=== PATIENT | male | born 1945 | race Caucasian/White ===

== ENCOUNTER 2016-07-31 02:10 | Inpatient (IN) ==
[2016-07-31] MEDS ORDERED: 0.9 % Sodium Chloride 1,000 ML IVC ONE (02:42)
--- NOTE | 2016-07-31 02:48 | Emergency Department Note ---
Disposition Clinical Impression: Atrial fibrillation with RVR Hematoma of left chest wall Qualifiers: Encounter type: initial encounter Qualified Code(s): S20.212A - Contusion of left front wall of thorax, initial encounter Traumatic hematoma of abdominal wall Qualifiers: Encounter type: initial encounter Qualified Code(s): S30.1XXA - Contusion of abdominal wall, initial encounter Disposition: Admitted As Inpatient Condition: Fair Referrals: NO,PCP [Primary Care Provider] - Forms: ED Satisfaction Letter Time of Disposition: 04:04 SOB HPI - General Chief Complaint: ED Shortness of Breath/Dyspnea Stated Complaint: VERONIQUE Time Seen by Provider: 07/31/16 02:12 Source: patient, EMS Limitations: no limitations Nursing Notes Reviewed: Yes Vital Signs Reviewed: Yes - History of Present Illness 71-year-old male presents to the emergency department for evaluation of difficulty in breathing. Patient states he had a fall approximately 3 weeks ago injuring his left ribs and left flank. He was seen in the emergency department earlier today for evaluation showed a large hematoma of the left chest wall and left flank. Patient states that he went home and shortly later became progressively short of breath. Patient states he was noted that he was having some palpitations and felt like he could not catch his breath. Patient urged his granddaughter to call EMS to transport him back to the emergency department. On arrival, patient is noted to be tachycardic at 130 bpm. His lungs are clear to auscultation bilaterally. His abdomen is soft and nontender. Patient has noted have extensive bruising to the left chest wall and left flank. No other findings noted on exam. Pt Subjective Complaint: shortness of breath Onset (ago): day(s) (3) Context: trauma/injury Severity: moderate Consistency/Duration: constant Improves with: nothing Worsens with: nothing Associated symptoms: Reports: chest pain, cough. Denies: sputum production, palpitations, nausea/vomiting Treatment prior to arrival: none Cough present: No - Related Data Home Medications Medication Instructions Recorded Confirmed Lexapro 07/15/16 Metoprolol 07/15/16 Simvastatin 07/15/16 Xarelto 07/15/16 Previous Rx's Medication Instructions Recorded Promethazine/Dextromethorphan 5 ml PO Q4H PRN #120 ml 07/15/16 [Promethazine-Dm Syrup] Benzonatate [Tessalon] 100 mg PO TID #30 capsule 07/23/16 Brompheniramine/Pseudoephed/Dm 5 ml PO QID #240 ml 07/23/16 [Bromfed Dm Cough Syrup] Levofloxacin [Levaquin] 750 mg PO DAILY #10 tablet 07/23/16 PredniSONE [Deltasone] 20 mg PO DAILY #18 tablet 07/23/16 OxyCODONE/APAP 5/325 [Percocet 1 each PO Q6HR PRN #24 tablet 07/30/16 5/325 MG] Allergies Allergy/AdvReac Type Severity Reaction Status Date / Time Penicillins Allergy Swelling Verified 07/15/16 10:12 of Lip/Tongue/Throat All systems ED: reviewed and negative except as stated. Constitutional: Denies: fever, chills Cardiovascular: Reports: chest pain, palpitations, dyspnea on exertion Respiratory: Reports: dyspnea Gastrointestinal: Denies: abdominal pain, nausea, vomiting Genitourinary: Denies: dysuria Musculoskeletal: Denies: back pain Neurological: Denies: headache, weakness Past Medical History - Past Medical History Medical history: Reports: atrial fibrillation, hypertension Surgical history: Reports: non-contributory Psychiatric history: Reports: no psych history - Social History Smoking Status: Never smoker Smokeless Tobacco Status: No Alcohol use: Reports: none Drug use: Reports: none Physical Exam - General Limitations: no limitations General appearance: alert, in no apparent distress - Head Head exam: atraumatic, normocephalic, normal inspection - Chest Chest inspection: Present: normal inspection, symmetric chest wall rise - Respiratory Respiratory exam: Present: normal lung sounds bilaterally - Cardiovascular Cardiovascular exam: Present: tachycardia, irregular rhythm, normal heart sounds - Abdominal Exam Abdominal exam: Present: soft, Non-Tender, other (Ecchymosis noted to the left flank). Absent: tenderness, distention, guarding, rebound, rigidity - Extremities Exam Extremities exam: Absent: pedal edema - Neurological Exam Neurological exam: Present: alert, oriented X3 - Skin Skin exam: Present: warm, dry, intact, other (Ecchymosis noted to the left flank and left lateral chest) Course - Reevaluation(s) Reevaluation #1: Patient remains tachycardic at 120 bpm despite Cardizem bolus. Will place the patient on a Cardizem drip and admit patient to the hospitalist service for further evaluation. Time: 04:03 Reevaluation #2: Discussed case with hospitalist. Patient accepted for further evaluation and treatment. Patient remains stable at time of disposition. Time: 04:24 Vital Signs Temperature 97.2 F L 07/31/16 02:11 Pulse Rate 113 07/31/16 02:11 Respiratory Rate 26 07/31/16 02:11 Blood Pressure 92/69 07/31/16 02:11 O2 Sat by Pulse Oximetry 99 07/31/16 02:11 Temperature 97.2 F L 07/31/16 02:11 Pulse Rate 86 07/31/16 03:30 Respiratory Rate 18 07/31/16 03:30 Blood Pressure 114/82 07/31/16 03:30 O2 Sat by Pulse Oximetry 97 07/31/16 03:30 Oxygen Delivery Oxygen Delivery Nasal Cannula Shortness of Breath/Dyspnea - Medical Records Medical records reviewed: Yes I reviewed the patient's medical records. - Lab Data Lab results reviewed: Yes I reviewed the patient's lab results. Lab Results 07/31/16 Range/Units 02:35 Troponin I 0.00 (0-0.03) ng/mL - Radiology Data Radiology results reviewed: Yes I reviewed the patient's radiology results. - EKG Data EKG attestation: Yes I reviewed and interpreted this EKG. Rate: Reports: tachycardia Rhythm: Reports: A.Fib Interpretation: Reports: no acute changes Attestation Statement - Attestation Attestation: I, Bharat Evans MD, personally performed a history and physical exam of the patient and discussed their management with the resident. I reviewed the resident's note and agree with the documented findings, medical decision making , and plan of care. 71-year-old male presents to the emergency department by ambulance with a complaint of shortness of breath. Patient was just here earlier today for evaluation. He had CT of the chest and abdomen and pelvis. He is not on home oxygen and denies history of breathing problems. He denies chest pain and returns tonight stating that he cannot breathe. Patient has a history of atrial fibrillation and is on Xarelto. On examination the patient is a well-developed well-nourished elderly male in no acute distress. He is alert and oriented 3. There is no cyanosis or diaphoresis. Breath sounds are decreased but equal bilaterally with no definite rales or wheezes noted. Heart is irregularly irregular with a moderate tachycardia. Abdomen is soft with normal bowel sounds. There is a large area of old resolving ecchymosis involving the left side of the trunk secondary to a fall several weeks ago. Chest x-ray tonight shows left basilar opacity which could represent consolidation or effusion. Labs reviewed from the patient's visit earlier today. The hospitalist, Dr. Marti, was consulted and accepted admission of the patient.
[2016-07-31] MEDS ORDERED: *HR* FentaNYL (PF) 100 MCG/2 ML VIAL IV ONE (03:19)
[2016-07-31] MEDS ORDERED: Ondansetron 4 MG/2 ML VIAL ONE (03:26)
[2016-07-31] MEDS ORDERED: Acetaminophen 325 MG TABLET PO PRN (04:39)
[2016-07-31] MEDS ORDERED: Naloxone 0.4 MG/ML INJ IVP PRN (04:39)
[2016-07-31] MEDS ORDERED: Ipratropium/Albuterol Neb 3 ML IH PRN (04:42)
[2016-07-31] MEDS ORDERED: *HR* Metoprolol 5 MG/5 ML VIAL IVP PRN (04:42)
--- NOTE | 2016-07-31 04:47 | Internal Med History&Physical ---
Date of Encounter: 07/31/16 Time of Encounter: 04:44 Assessment and Plan (1) Atrial fibrillation with RVR Current visit: Yes Status: Acute Unclear etiology Could be related to left chest wall hematoma? Consider repeating CT scan of the chest if worse Hold Xarelto Please call cardiology consult Continue Cardizem drip and metoprolol as needed Monitor CBC Start Lasix IV (2) Hyperlipidemia Current visit: Yes Status: Acute Qualifiers: Hyperlipidemia type: unspecified Qualified Code(s): E78.5 - Hyperlipidemia , unspecified (3) Hematoma of left chest wall Current visit: Yes Status: Acute Qualifiers: Encounter type: initial encounter Qualified Code(s): S20.212A - Contusion of left front wall of thorax, initial encounter (4) Traumatic hematoma of abdominal wall Current visit: Yes Status: Acute Qualifiers: Encounter type: initial encounter Qualified Code(s): S30.1XXA - Contusion of abdominal wall, initial encounter (5) Depression Current visit: Yes Status: Acute Omeprazole for GI prophylaxis and sequential compression devices for DVT prophylaxis. Patient will be admitted as inpatient, he is expected to stay more than 2 midnights. He is a full code. Time spent on this admission 40 minutes. He is high risk for respiratory failure due to intra-relation with RVR Qualifiers: Depression Type: unspecified Qualified Code(s): F32.9 - Major depressive disorder, single episode, unspecified Internal Medicine - H&P: HPI Chief complaint: Shortness of breath Admitted From: Emergency Dept Plans for Post Hospital Care: Home History of present illness: Mr. Hastings is a 71 year old male with a past medical history of atrial fibrillation on Xarelto, , depression, who had a fall 3 weeks ago and hit his left chest. He has been seen at the ER twice in the past 2 days. Yesterday he had a CT scan of the chest that showed the left anterolateral wall hematoma. Today the chest x-ray shows a left basilar opacity/possible left pleural effusion. His heart rate was in the 140s and had to be given Cardizem due to atrial fibrillation with rapid ventricular response. His heart rate right now is in the low 100s, complains of pain in worse ecchymosis on the left side of his chest with some tenderness. CT scan was done yesterday as well that did not show any abnormality. His hemoglobin has been stable. At the moment he feels is still short of breath and sounds very congested, bringing up just clear phlegm. Denies any other abnormalities or symptoms Past Med Surg Social Fam HX - Past Medical History Medical history: atrial fibrillation (With rapid ventricular response on Xarelto ), hypertension, other (Left rib/chest wall hematoma, depression, hyperlipidemia ) Psychiatric history: no psych history - Past Surgical History Surgical History: non-contributory, other (Cardiac ablation) - Social History Smoking Status: Never smoker Smokeless Tobacco Status: No Alcohol use: none Drug use: none - Additional Family History Additional family history: Mother with lung cancer and father with [place] Internal Medicine - H&P: Meds Lexapro 07/15/16 [History] Metoprolol 07/15/16 [History] Promethazine/Dextromethorphan [Promethazine-Dm Syrup] 5 ml PO Q4H PRN #120 ml [Rx] Simvastatin 07/15/16 [History] Xarelto 07/15/16 [History] Benzonatate [Tessalon] 100 mg PO TID #30 capsule 07/23/16 [Rx] Brompheniramine/Pseudoephed/Dm [Bromfed Dm Cough Syrup] 5 ml PO QID #240 ml [Rx] Levofloxacin [Levaquin] 750 mg PO DAILY #10 tablet 07/23/16 [Rx] PredniSONE [Deltasone] 20 mg PO DAILY #18 tablet 07/23/16 [Rx] OxyCODONE/APAP 5/325 [Percocet 5/325 MG] 1 each PO Q6HR PRN #24 tablet 07/30/16 [Rx] Allergies Penicillins Allergy (Verified 07/15/16 10:12) Swelling of Lip/Tongue/Throat All Systems PM: A 10-system review of systems was performed and is negative for pertinent findings except as documented above in the HPI. Review of systems: Physical breath, complains of chest pain, left chest pain, no abdominal pain, no dysuria, other systems out of the 10 reviewed were negative - Constitutional Vitals: Temp Pulse Resp BP Pulse Ox 97.2 F L 102 20 96/66 98 07/31/16 02:11 07/31/16 04:44 07/31/16 04:44 07/31/16 04:44 07/31/16 04:44 General appearance: Present: A&O X 3 - Head Head exam: Present: atraumatic, normocephalic - Eye Eye exam: Present: PERRL, conjuntiva pink, sclera anicteric Pupils: Present: PERRL - Neck Neck exam general surgery: Present: supple, trachea midline. Absent: lymphadenopathy - Respiratory Respiratory exam: Present: CTAB, rales (Left basilar crackles with upper airway congestion). Absent: accessory muscle use, rhonchi, wheezes - Cardiovascular Cardiovascular exam: Present: RRR, +S1, +S2. Absent: diastolic murmur, gallop, rubs, systolic murmur - GI/Abdominal GI/Abdominal exam: Present: distended (Large area of ecchymoses and left abdominal and chest areas), normal bowel sounds, soft, no peritoneal signs. Absent: tenderness - Extremities Exam Extremities exam: Present: warm, radial pulses palpable and symetrical. Absent : calf tenderness, cyanotic, pedal edema - Neurological Exam Neurological exam: Present: CN II-XII intact, oriented X3, no focal deficits. Absent: pronater drift, facial droop, speech deficit - Skin Skin exam: Present: dry, intact Internal Med - H&P Results - Labs Labs: WBC 13.8, hemoglobin 11.4 hematocrit 34.5 platelets 260, sodium 138 potassium 3.8 chloride 104 CO2 29 BUN 19 creatinine 0.81 glucose 120
[2016-07-31] MEDS: *HR* Morphine 2 MG/ML SYRINGE IVP PRN ×4 (05:17→22:08)
[2016-07-31] MEDS ORDERED: 0.9 % Sodium Chloride 1,000 ML ONE (08:00)
[2016-07-31] MEDS: Benzonatate 100 MG CAPSULE PO SCH ×3 (08:03→22:09)
[2016-07-31] MEDS: Furosemide 40 MG/4 ML VIAL IV SCH (08:03)
--- NOTE | 2016-07-31 08:10 | Cardiology Consult Note ---
<Yemi Arriaga - Last Filed: 07/31/16 09:05> Date of Encounter: 07/31/16 Time of Encounter: 08:08 Assessment and Plan (1) Atrial fibrillation with RVR Current Visit: Yes Status: Acute Mild afib with RVR this am on cardizem gtt. Likely exacerbated by emphysema/ bronchitis and hematoma. Increase home dose of toprol xl and stop cardizem. Increase as needed. CHADS VASc= 2 for HTN and age. Xarelto on hold d/t hematoma. Hgb stable. Continue to hold until hematoma resolved. Restart once able. (2) Emphysema lung Current Visit: Yes Status: Acute Moderate emphysema and possible bronchiectasis on CT scan 07/30/16 Took two rounds of antibiotics in the out pt setting. Hospitalist following. Consider pulmonology consult if no improvement. Qualifiers: Emphysema type: unspecified Qualified Code(s): J43.9 - Emphysema, unspecified (3) Hematoma of left chest wall Current Visit: Yes Status: Acute Qualifiers: Encounter type: initial encounter Qualified Code(s): S20.212A - Contusion of left front wall of thorax, initial encounter Discussion w patient/family: The assessment and plan as outlined above was discussed with the patient and/or family members who expressed understanding and agreement. All questions were answered. Thank you for involving us in the care of your patient. Please call with any questions. History of Present Illness Consult date: 07/31/16 Requesting physician: Felipe Castle Consult reason: afib with RVR Chief complaint: SOB, Fall History of present illness: Mr. Hastings is a 71 year old male with a history of paroxysmal atrial fibrillation on xarelto, atypical atrial flutter s/p ablation, tachycardia induced cardiomyopathy, hypertension, hyperlipidemia, and mechanical fall 07/09 who presented with SOB. He was found to have left chest hematoma on CT scan 07/30/16. His xarelto was discontinued at that time. He hit his back and abdomen when he fell. No fractures seen. His states his bruising did not appear until he was coughing very hard a couple of weeks ago. He was being treated for bronchitis for two weeks in the out pt setting. He took two rounds of antibiotics and steroids. His SOB and cough continued to increase. He denies weight gain or edema. Mild orthopnea. Denies chest pain. His stated he was passing out after having a forceful coughing spell. His symptoms improved with oxygen. CT scan showed moderate emphysema and possible inflammatory bronchiectasis. LLL nodules with the largest being 7mm. No CHF described. TTE 2013-EF 50% . EF low normal.Moderately enlarged bilateral atrium. Limited study. TTE 2011- EF 45-50%. Trace TR. Stress test 2012- negative for ischemia or infarct. Past Med Surg Social Fam HX - Past Medical History Medical history: atrial fibrillation (With rapid ventricular response on Xarelto ), hypertension, other (Left rib/chest wall hematoma, depression, hyperlipidemia ) Psychiatric history: no psych history - Past Surgical History Surgical History: non-contributory, other (Cardiac ablation) - Social History Smoking Status: Never smoker Smokeless Tobacco Status: No Alcohol use: none Drug use: none - Family History Mother Living Status: Hx Family Cancer: Yes Father Living Status: Hx Family Cardiac Disorders: Yes Medications and Allergies Escitalopram [Lexapro] 20 mg PO DAILY 07/15/16 [History] Metoprolol XL (24 HR) Succ [Toprol XL] 25 mg PO DAILY 07/15/16 [History] Rivaroxaban [Xarelto] 20 mg PO QPM 07/15/16 [History] Simvastatin [Zocor] 10 mg PO DAILY 07/15/16 [History] Brompheniramine/Pseudoephed/Dm [Bromfed Dm Cough Syrup] 5 ml PO QID #240 ml [Rx] Levofloxacin [Levaquin] 750 mg PO DAILY #10 tablet 07/23/16 [Rx] PredniSONE [Deltasone] 20 mg PO DAILY #18 tablet 07/23/16 [Rx] Dutasteride [Avodart] 0.5 mg PO DAILY 07/31/16 [History] OxyCODONE/APAP 5/325 [Percocet 5/325 MG] 1 tab PO Q6HR PRN 07/31/16 [History] Allergies Penicillins Allergy (Verified 07/15/16 10:12) Swelling of Lip/Tongue/Throat All Systems Review: A 10-system review of systems was performed and is negative for pertinent findings except as documented above in the HPI. Physical Examination Vital Signs, Last 4 Hours Pulse Resp BP Pulse Ox 07/31/16 07:59 16 114/83 07/31/16 06:59 98 18 119/93 98 07/31/16 06:07 95 18 104/67 98 07/31/16 05:23 103 18 122/92 97 07/31/16 04:44 102 20 96/66 98 General: Conversant, Other (restless, appears uncomfortable) HEENT: Atraumatic, Normocephaly, Mucus Membranes Moist Neck: No JVD, Normal carotid pulses Cardiac: Other (Irregularly irregular) Lungs: Other (Respirations shallow, lungs clear but diminished in bases. ) Neuro: Alert and responsive, No focal deficits noted Abdomen: Other (Moderate amount of ecchymosis on his left lower abdomin wrapping around to his back . Mildly distended, tender to palpation. ) Skin: No rashes noted on visualized skin Extremities: No Clubbing, No Cyanosis, No Edema, Normal Pulses Results Chest X-Ray 07/31/16 02:42 IMPRESSION: Left basilar opacity could represent consolidation and pleural effusion. D/ / Carlos Lunsford MD / Carlos Lunsford MD Interpreting Provider: Carlos Lunsford MD Cardiac Enzymes 07/31/16 Range/Units 02:35 Troponin I 0.00 (0-0.03) ng/mL CT scan 07/30/16- showed hemmorhage/eccymosis within SQ fat of the left anterolateral/lateral wall. Moderate emphysema with possible inflammatory bronchiectasis within the right middle and lower lobes. there is lung nodules with largest at 7mm in LLL. - Imaging and Cardiology Echo: report reviewed Consult Discharge Plan - Plan Referrals: NO,PCP [Primary Care Provider] - <Татьяна Armas - Last Filed: 07/31/16 16:56> Date of Encounter: 07/31/16 Assessment and Plan Discussion w patient/family: The assessment and plan as outlined above was discussed with the patient and/or family members who expressed understanding and agreement. All questions were answered. Thank you for involving us in the care of your patient. Please call with any questions. History of Present Illness History of present illness: Mr. Hastings is a 71 year old male All Systems Review: A 10-system review of systems was performed and is negative for pertinent findings except as documented above in the HPI. Physical Examination Vital Signs, Last 4 Hours Temp Pulse Resp BP Pulse Ox 07/31/16 16:26 97.8 F 95 16 124/77 97 Results 07/31/16 11:47 07/31/16 11:47 Lab Results 07/31/16 07/31/16 07/31/16 11:47 11:47 11:47 WBC 15.3 H Hgb 10.1 L Hct 31.1 L Plt Count 297 INR 2.2 Sodium 136 Potassium 4.3 Chloride 101 Carbon Dioxide 27 BUN 25 Creatinine 1.08 Glucose 147 H Calcium 8.3 L Magnesium 2.0 Troponin I 07/31/16 11:47 WBC Hgb Hct Plt Count INR Sodium Potassium Chloride Carbon Dioxide BUN Creatinine Glucose Calcium Magnesium Troponin I 0.00 - Attending Attestation I examined this patient and my medical decision-making was reviewed with the SHIELD OPERATOR/PA/Advanced Practice Nurse/Resident Physician. I agree with the documented findings, disposition and treatment plan. Mr. Hastings presents with worsening SOB after being diagnosed with bronchitis and developing a large hematoma over his abdomen. His heart rates were noted to be elevated, 90-110's and was placed on cardizem gtt. We have stopped the drip and increased his home dose of toprol. An echo is pending. Otherwise, xarelto has been stopped secondary to the presence of a hematoma that he developed after a mechanical fall. Blood count is stable.
[2016-07-31] MEDS: Metoprolol XL (24 HR) Succ 50 MG TAB.ER.24H PO SCH (09:28)
--- NOTE | 2016-07-31 11:18 | Internal Med Progress Note ---
Date of Encounter: 07/31/16 Time of Encounter: 10:50 - Assessment and plan (1) Atrial fibrillation with RVR Current Visit: Yes Status: Acute Assessment and plan: Rate controlled with Toprol XL 50mg QD CHADSVASC 2, appropriate for long-term a/c, though in setting of pronounced hematoma with low Hgb, would hold at this juncture until hematoma resolves. Appreciate cardiology recs. (2) Hematoma of left chest wall Current Visit: Yes Status: Acute Assessment and plan: Per patient, sustained mechanical fall while on Xarelto. Chest CT 07/30/16 10:03 IMPRESSION: Hemorrhage/ecchymosis within the subcutaneous fat of the left anterolateral and lateral abdominal wall. Hematoma of the left anterolateral abdominal wall musculature. No acute fracture nor acute intrathoracic/ abdominal/ pelvic findings. Moderate emphysema. With postinflammatory bronchiectasis within the right middle and left lower lobe. There are couple of noncalcified left lower lobe nodules, larger measuring 7 mm. Ideally, comparison with prior studies could be performed to confirm stability. Otherwise, recommendation as below. White count elevated, with pleural effusion/hematoma acting as possible nidus for infection. Will finish levaquin course, 750mg x 1 more day. Qualifiers: Encounter type: initial encounter Qualified Code(s): S20.212A - Contusion of left front wall of thorax, initial encounter (3) Traumatic hematoma of abdominal wall Current Visit: Yes Status: Acute Assessment and plan: No peritoneal signs, no CVA tenderness. Cont to monitor, eval for signs anemia. Qualifiers: Encounter type: initial encounter Qualified Code(s): S30.1XXA - Contusion of abdominal wall, initial encounter (4) Emphysema lung Current Visit: Yes Status: Chronic Assessment and plan: Long-standing smoking history per patient Qualifiers: Emphysema type: unspecified Qualified Code(s): J43.9 - Emphysema, unspecified (5) DVT prophylaxis Current Visit: Yes Status: Acute Assessment and plan: EPCDs in light of hematoma. - Subjective Interval history: Patient seen/eval while he was in ED bed. HPI reviewed, interval events noted. He had sustained mechanical fall late Jun 2016 while on xarelto for Afib, subsequently developed left ant wall and abdominal/flank ecchymosis. Presents with breakthrough AFRVR, xarelto held due to hematoma. He endorses cough, but nonbloody. No hematemesis. No gross hematuria or bloody stool noted. - Constitutional Vitals: Temp Pulse Resp BP Pulse Ox 97.2 F L 89 20 108/76 97 07/31/16 02:11 07/31/16 09:36 07/31/16 09:36 07/31/16 09:36 07/31/16 09:36 General appearance: Present: A&O X 3, morbidly obese, answers questions appropriately - Head Head exam: Present: atraumatic, normocephalic - Eye Eye exam: Present: EOMI, sclera anicteric - ENT ENT exam: Present: mucous membranes moist - Neck Neck exam general surgery: Present: supple, trachea midline - Respiratory Respiratory exam: Present: rhonchi (scant ronchi, dim all lee 2* habitus). Absent: wheezes - Cardiovascular Cardiovascular exam: Present: irregular rhythm (c/w Afib), +S1, +S2. Absent: JVD - GI/Abdominal GI/Abdominal exam: Present: soft, no peritoneal signs Additional comments: Noted left chest wall, left abdomen and left flank with region ecchymosis. No CVA tenderness - Extremities Exam Extremities exam: Present: warm, radial pulses palpable and symetrical. Absent : pedal edema - Neurological Exam Neurological exam: Present: strengths equal and symetr throughout, speech deficit. Absent: facial droop Internal Medicine: Result - Labs CBC & Chem 7: 07/31/16 11:47 07/31/16 11:47 Consult Discharge Plan - Plan Referrals: NO,PCP [Primary Care Provider] -
[2016-07-31 12:06] LABS: Basophils % 0.2 %; Eosinophils % 0.3 %; Hematocrit 31.1 % (37.5-50.1); Hemoglobin 10.1 g/dL (12.9-16.9); Immature Granulocytes % 1.1 % (0-4); Lymphocytes # 2.8 K/mcL (0.6-4.6); Lymphocytes % 18.1 %; Mean Corpuscular HGB Conc 32.5 g/dL (31.6-35.5); Mean Corpuscular Hemoglobin 30.3 pg (28.0-33.3); Mean Corpuscular Volume 93.4 fL (83.0-100.0); Mean Platelet Volume 9.4 fL (9.4-12.4); Monocytes # 1.6 K/mcL (0.0-1.3); Monocytes % 10.2 %; Neutrophils # 10.8 K/mcL (1.6-8.9); Nucleated Red Blood Cells 0.3 /100 WBC (0); Platelet Count 297 K/mcL (140-400); Red Blood Count 3.33 M/mcL (4.19-5.50); Red Cell Distribution Width 12.5 % (11.5-14.5); Segmented Neutrophils % 70.1 %
[2016-07-31 12:10] LABS: INR 2.2; Prothrombin Time 24.8 Seconds (9.4-12.1)
--- NOTE | 2016-07-31 12:10 | Electrocardiograph Report ---
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
[2016-07-31 12:18] LABS: BUN/Creatinine Ratio 23 (6-26); Blood Urea Nitrogen 25 mg/dL (8-26); Calcium 8.3 mg/dL (8.6-10.8); Carbon Dioxide 27 mEq/L (19-29); Chloride 101 mEq/L (98-109); Glucose 147 mg/dL (70-99); Osmolality,Calculated 289 (280-300); Potassium 4.3 mEq/L (3.5-4.5); Sodium 136 mEq/L (136-145); eGFR For African Americans > 60 (> 60); eGFR For Non-African Americans > 60 (> 60)
[2016-07-31] MEDS ORDERED: Levofloxacin 750 MG/150 ML 750 MG/150 ML BAG IVPB ONE (16:03)
--- NOTE | 2016-07-31 16:11 | Event Note ---
<Chika Hayes - Last Filed: 07/31/16 16:11> Date of Encounter: 07/31/16 Time of Encounter: 11:16 Patient seen/eval while he was in ED bed. HPI reviewed for earlier this morning reviewed, interval events noted. He had sustained mechanical fall late Jun 2016 while on xarelto for Afib, subsequently developed left ant wall and abdominal/ flank ecchymosis. Presents with breakthrough AFRVR, xarelto held due to hematoma. He endorses cough, but nonbloody. No hematemesis. No gross hematuria or bloody stool noted. Exam discloses Gen: Morbidly obese habitus, pleasant HEENT: ATNC EOMI nonicteric, mmm Neck supple, trachea midline CV irregular rhythm (c/w Afib), +S1, +S2. Absent: JVD Resp rhonchi (scant ronchi, dim all lee 2* habitus). Absent: wheezes Abdomen: BS positive all 4 quadrants, no peritonea signs, no tenderness Noted left chest wall, left abdomen and left flank with region ecchymosis. No CVA tenderness Ext warm, radial pulses palpable and symetrical. Absent: pedal edema Neuro strengths equal and symetr throughout, speech deficit. Absent: facial droop AF RVR Rate controlled with Toprol XL 50mg QD CHADSVASC 2, appropriate for long-term a/c, though in setting of pronounced hematoma with low Hgb, would hold at this juncture until hematoma resolves. Appreciate cardiology recs. Hematoma left chest well, pleural effusion Per patient, sustained mechanical fall while on Xarelto. White count elevated, with pleural effusion/hematoma acting as possible nidus for infection. Will finish levaquin course, 750mg x 1 more day. No peritoneal signs, no CVA tenderness. Cont to monitor, eval for signs anemia. EPCDs in light of hematoma. <Santino Mcfarlane - Last Filed: 07/31/16 18:10> Date of Encounter: 07/31/16 I examined this patient and my medical decision-making was reviewed with the [facility]/PA/Advanced Practice Nurse/Resident Physician. I agree with the documented findings, disposition and treatment plan as described except to the extent set forth below. Will monitor cbc and signs of bleeding.
[2016-07-31] MEDS ORDERED: Perflutren Lipid Microsphere 1.3 ML in 0.9 % Sodium Chloride 8.7 ML IVP ONE (19:56)
[2016-07-31] MEDS ORDERED: Perflutren Lipid Microsphere 2 ML VIAL ONE (19:58)
[2016-07-31 21:03] LABS: Hematocrit 29.5 % (37.5-50.1); Hemoglobin 9.9 g/dL (12.9-16.9)
[2016-08-01] MEDS: *HR* Morphine 2 MG/ML SYRINGE IVP PRN ×2 (05:51→11:05)
[2016-08-01 05:57] LABS: Hematocrit 27.6 % (37.5-50.1); Hemoglobin 9.1 g/dL (12.9-16.9); Mean Corpuscular Hemoglobin 30.7 pg (28.0-33.3); Mean Corpuscular Volume 93.2 fL (83.0-100.0); Mean Platelet Volume 9.7 fL (9.4-12.4); Platelet Count 251 K/mcL (140-400); Red Blood Count 2.96 M/mcL (4.19-5.50); Red Cell Distribution Width 12.5 % (11.5-14.5)
[2016-08-01 06:15] LABS: BUN/Creatinine Ratio 25 (6-26); Blood Urea Nitrogen 20 mg/dL (8-26); Calcium 8.5 mg/dL (8.6-10.8); Carbon Dioxide 31 mEq/L (19-29); Chloride 103 mEq/L (98-109); Chol/HDL Ratio 2.7 (0-4.9); Cholesterol 104 mg/dL (< 200); Glucose 112 mg/dL (70-99); HDL Cholesterol 38 mg/dL (40-59); LDL Cholesterol,Calculated 45 mg/dL (0-99); Osmolality,Calculated 289 (280-300); Potassium 4.5 mEq/L (3.5-4.5); Sodium 138 mEq/L (136-145); Triglycerides 106 mg/dL (< 150); eGFR For African Americans > 60 (> 60); eGFR For Non-African Americans > 60 (> 60)
[2016-08-01] MEDS: Furosemide 40 MG/4 ML VIAL IV SCH (07:31)
[2016-08-01] MEDS: Benzonatate 100 MG CAPSULE PO SCH ×3 (07:31→20:26)
[2016-08-01] MEDS: Metoprolol XL (24 HR) Succ 50 MG TAB.ER.24H PO SCH (07:31)
--- NOTE | 2016-08-01 07:41 | ECHO - Doppler Report ---
Echo with Imaging Enhancement Agent Name: Tushar Hastings Date of Study: 07/31/2016 Date: 1945 Ht: 71.0 in Medical Record#: [id number] Age: 71 Wt: 304.0 lb Gender: Male BSA: 2.52 Order #: [id number] Location: [facility] Room #: 2NE16 Reading Physician: Max Ramirez MD, [facility] Chemistry Quality Control Technician: María Elena Morrow Ordering Physician: Yemi Arriaga CNP Primary Physician: None Indications: Afib, Shortness of breath Impressions: Technically sub-optimal due to poor echocardiographic windows. Atrial fibrillation with RVR. Normal left ventricular size and systolic function, LVEF 55%. Indeterminate diastolic function due to atrial fibrillation. Normal right ventricular structure and function. Moderately dilated left atrium. Moderately dilated right atrium. Cardiac valves were not well visualized. No evidence of significant valvular dysfunction. Mild pulmonary hypertension. Estimated RVSP = 38 mmHg. Left Ventricular Wall Motion: Rest Echo Findings All wall segments showed normal motion. Findings: Study Quality * Technically sub-optimal due to poor echocardiographic windows. ECG Findings * Atrial fibrillation with RVR. Left Ventricle * Normal left ventricular size and systolic function, LVEF 55%. * Normal LV wall thickness. * Indeterminate diastolic function due to atrial fibrillation. Right Ventricle * Normal right ventricular structure and function. Left Atrium * Moderately dilated left atrium. Right Atrium * Moderately dilated right atrium. Aorta * Normally sized aortic root. Pericardium * There is no pericardial effusion present. IVC * The IVC is not well evaluated. Aortic Valve * Aortic valve not well visualized. * No aortic stenosis. * No aortic regurgitation. Mitral Valve * Mitral valve not well visualized. * Mild mitral annular calcification * No mitral stenosis. * No mitral regurgitation. Tricuspid Valve * Tricuspid valve not well visualized. * No tricuspid stenosis. * Trace tricuspid regurgitation. * Mild pulmonary hypertension. Estimated RVSP = 38 mmHg. Pulmonic Valve * Pulmonic valve not well visualized. * No pulmonic stenosis. * No pulmonic regurgitation. History Hypertension Hypercholesteremia Years 12 Packs 1 Family History of CAD 05/05/2014 a Previous Echo was performed. Contrast: Definity 1.3 ml in 8.7 ml of saline 2 ml. Measurements: BP: 124/ 77 2D Normal Values RVIDd: 3.20 cm IVSd: 1.00 cm 0.6 - 1.0 cm LVIDd: 5.00 cm 3.7 - 5.6 cm LVPWd: 1.00 cm 0.6 - 1.1 cm LVIDs: 3.00 cm 1.5 - 3.6 cm AO: 3.10 cm < 4.0 cm Tricuspid Valve TV Regurg Peak Grad: 33.00mmHg TV Regurg Peak Kash: 2.89m/sec Updated by Max Ramirez MD, [facility] on 08/01/2016 7:35:26 AM electronically signed on 08/01/2016 7:36:29 AM with status of Final Wall Motion Gardner: 1=Normal, 2=Hypokinesis, 3=Akinesis, 4=Dyskinesis, 5=Aneurysmal, 6=Hyperkinetic, X=Not Visualized (Blank)=Missing
--- NOTE | 2016-08-01 08:47 | Cardiology Progress Note ---
Date of Encounter: 08/01/16 Time of Encounter: 08:45 Assessment and Plan (1) Atrial fibrillation with RVR Current Visit: Yes Status: Acute Per Cardiology: History of paroxysmal atrial fibrillation on xarelto, atypical atrial flutter s/ p ablation, tachycardia induced cardiomyopathy. Echo shows EF preserved 55%, moderately dilated LA and RA. Tele shows avg HR past 12 hrs 98, currently 100's (afib). Likely exacerbated by emphysema/bronchitis and pain. On Toprol XL 50mg PO daily. Current systolic blood pressure in the 90s. We'll continue to monitor heart rate and blood pressure suspect morning and titrate medications as able. CHA2DS VASc= 2 for HTN and age. Xarelto on hold d/t hematoma. Patient and family aware of increased stroke risk. (2) Traumatic hematoma of abdominal wall Current Visit: Yes Status: Acute Per Cardiololgy: S/p mechanical fall (slipped on wet steps on a school bus) 07/09/16 with left chest hematoma on CT scan 07/30/16. His Xarelto has now been on hold during this hospital stay. Hgb downward trending from 11.4 to 9.1. Continue to hold until hematoma resolved and monitor Hgb closely. Recent chest/abdomen/pelvis CT showed hemorrhage/ecchymosis with subsequent stat left anterolateral and lateral , wall with hematoma of left anterolateral abdominal wall musculature. Qualifiers: Encounter type: initial encounter Qualified Code(s): S30.1XXA - Contusion of abdominal wall, initial encounter Discussion w patient/family: The assessment and plan as outlined above was discussed with the patient and/or family members who expressed understanding and agreement. All questions were answered. Thank you for involving us in the care of your patient. Please call with any questions. Subjective Principal diagnosis: Afib RVR Interval history: Patient denies any palpitations or shortness of breath. Reports some left-sided chest soreness from his fall. Patient and family report development of bruising to his left flank area since yesterday. He denies any active bleeding or blood loss. Reports utilizes CPAP at home for sleep apnea. Objective Vital Signs, Last 4 Hours Temp Pulse Resp BP Pulse Ox 08/01/16 08:32 97.8 F 107 16 107/75 92 L 08/01/16 07:37 95 08/01/16 05:42 98.8 F 92 17 124/73 97 General: Conversant, No Apparent Distress HEENT: Atraumatic, Normocephaly, Mucus Membranes Moist Cardiac: No Murmur, Other (Irregularly irregular) Lungs: Normal Breath Sounds, No Wheeze, Rales, Rhonchi Neuro: Alert and responsive, No focal deficits noted Abdomen: Soft, Non-Tender Skin: Other (ecchymotic area noted to left upper and left lower abdominal quadrants, ecchymosis noted to L flank) Musculoskeletal: Other (+ chest wall tenderness) Extremities: No Edema Results 08/01/16 05:19 08/01/16 05:19 Lab Results Laboratory Tests 02/08/16 07/30/16 07/31/16 10:29 10:12 02:35 Hgb 14.7 11.4 L Hct 44.2 34.5 L INR Troponin I 0.00 07/31/16 07/31/16 08/01/16 11:47 11:47 05:19 Hgb 9.1 L Hct 27.6 L INR 2.2 Troponin I 0.00 ITS Impressions Chest X-Ray 07/31/16 02:42 IMPRESSION: Left basilar opacity could represent consolidation and pleural effusion. D/ / Carlos Lunsford MD / Carlos Lunsford MD Interpreting Provider: Carlos Lunsford MD Active Medications Acetaminophen (Tylenol) 650 mg PO Q6HR PRN PRN Reason: Mild Pain (1-3) Stop: 01/30/17 04:40 Albuterol/Ipratropium (Duoneb) 3 ml IH [id number] PRN; Protocol PRN Reason: Shortness Of Breath/Wheezing Stop: 01/30/17 04:43 Benzonatate (Tessalon) 100 mg PO TID AYE Stop: 01/30/17 09:01 Last Admin: 08/01/16 07:31 Dose: 100 mg Furosemide (Lasix) 20 mg IV DAILY [facility] Stop: 01/30/17 09:01 Last Admin: 08/01/16 07:31 Dose: 20 mg Metoprolol Succinate (Toprol Xl) 50 mg PO DAILY [facility] Stop: 01/30/17 09:16 Last Admin: 08/01/16 07:31 Dose: 50 mg Metoprolol Tartrate (Lopressor) 5 mg IVP Q5MIN PRN PRN Reason: tachycardia Stop: 08/02/16 04:46 Morphine Sulfate (Morphine Sulfate) 2 mg IVP Q4HR PRN PRN Reason: Severe Pain (7-10) Stop: 01/30/17 04:40 Last Admin: 08/01/16 05:51 Dose: 1 mg Naloxone HCl (Narcan) 0.4 mg IVP Q2MIN PRN PRN Reason: Opioid Reversal Stop: 01/30/17 04:40 Omeprazole (Prilosec) 40 mg PO DAILY@0630 AYE PRN Reason: Protocol Stop: 01/30/17 06:31 Last Admin: 08/01/16 05:44 Dose: 40 mg - Imaging and Cardiology Chest Xray: report reviewed Echo: report reviewed - EKG Interpretation EKG results cardiology: other (24 hr tele reviewed and showed afib with avg hr past 12 hrs 98, curently 101) - VTE Documentation of Mechanical Device: Intermittent pneumatic compression device Consult Discharge Plan - Plan Referrals: NO,PCP [Primary Care Provider] -
[2016-08-01] MEDS ORDERED: 0.9 % Sodium Chloride 1,000 ML IVC ONE (11:05)
[2016-08-01] MEDS ORDERED: Metoprolol XL (24 HR) Succ 25 MG TAB.ER.24H PO ONE (14:12)
--- NOTE | 2016-08-01 14:46 | Internal Med Progress Note ---
<Chika Hayes - Last Filed: 08/01/16 14:47> Date of Encounter: 08/01/16 Time of Encounter: 14:35 - Assessment and plan (1) Atrial fibrillation with RVR Current Visit: Yes Status: Acute Assessment and plan: Rate controlled with Toprol XL 50mg QD CHADSVASC 2, appropriate for long-term a/c, though in setting of pronounced hematoma with low Hgb, continue to hold at this juncture until hematoma resolves. Appreciate cardiology recs. (2) Hematoma of left chest wall Current Visit: Yes Status: Acute Assessment and plan: Per patient, sustained mechanical fall while on Xarelto. White count elevated, with pleural effusion/hematoma acting as possible nidus for infection. 07/31/16 Finished course of levaquin started as outpatient. Qualifiers: Encounter type: initial encounter Qualified Code(s): S20.212A - Contusion of left front wall of thorax, initial encounter (3) Traumatic hematoma of abdominal wall Current Visit: Yes Status: Acute Assessment and plan: Per above, monitor H/H Qualifiers: Encounter type: initial encounter Qualified Code(s): S30.1XXA - Contusion of abdominal wall, initial encounter (4) Emphysema lung Current Visit: Yes Status: Chronic Assessment and plan: Suggested by CT Chest. He had outpatient prednisone taper, but given continued wheezing on exam and dyspnea, would restart 3 day burst of prednisone. Qualifiers: Emphysema type: unspecified Qualified Code(s): J43.9 - Emphysema, unspecified (5) DVT prophylaxis Current Visit: Yes Status: Acute Assessment and plan: EPCDs - Subjective Interval history: Patient seen/eval, at bedside. He affirms continued pleuritic discomfort and white-productive cough. He denies any blood-tinged sputum. No bloody stools or gross hematuria. Denies fever, chills, substernal chest pain, nvd. Still feels he is wheezing. Finished course of levaquin yesterday. - Constitutional Vitals: Temp Pulse Resp BP Pulse Ox 98.3 F 104 17 111/78 95 08/01/16 10:53 08/01/16 11:26 08/01/16 10:53 08/01/16 11:26 08/01/16 10:53 General appearance: Present: A&O X 3, morbidly obese, answers questions appropriately - Head Head exam: Present: atraumatic, normocephalic - Eye Eye exam: Present: EOMI, sclera anicteric - ENT ENT exam: Present: mucous membranes moist - Neck Neck exam general surgery: Present: supple, trachea midline - Respiratory Respiratory exam: Present: rhonchi (scant ronchi, mild intermittent exp wheeze) . Absent: accessory muscle use, stridor - Cardiovascular Cardiovascular exam: Present: +S1, +S2. Absent: JVD - GI/Abdominal GI/Abdominal exam: Present: soft, no peritoneal signs. Absent: tenderness Additional comments: left abdominal ecchymosis, left chest wall ecchymosis and left flank are resolving. No fluctuance. - Extremities Exam Extremities exam: Present: warm, radial pulses palpable and symetrical. Absent : pedal edema - Neurological Exam Neurological exam: Absent: facial droop, speech deficit Internal Medicine: Result - Labs CBC & Chem 7: 08/01/16 05:19 08/01/16 05:19 Labs: Short CBC 07/31/16 08/01/16 Range/Units 20:56 05:19 WBC 11.9 H (4.3-11.1) K/mcL Hgb 9.9 L 9.1 L (12.9-16.9) g/dL Hct 29.5 L 27.6 L (37.5-50.1) % Plt Count 251 (140-400) K/mcL BMP 08/01/16 05:19 Sodium 138 Potassium 4.5 Chloride 103 Carbon Dioxide 31 H BUN 20 Creatinine 0.79 Glucose 112 H Calcium 8.5 L - ABG Interpretation ABG results: PT/INR, D-dimer PT 24.8 Seconds (9.4-12.1) H 07/31/16 11:47 - VTE Documentation of Mechanical Device: Intermittent pneumatic compression device Consult Discharge Plan - Plan Referrals: NO,PCP [Primary Care Provider] - <Santino Mcfarlane - Last Filed: 08/01/16 18:13> Date of Encounter: 08/01/16 - Constitutional Vitals: Temp Pulse Resp BP Pulse Ox 98.0 F 104 17 122/65 94 L 08/01/16 16:24 08/01/16 16:24 08/01/16 16:24 08/01/16 16:24 08/01/16 16:24 Internal Medicine: Result - Labs CBC & Chem 7: 08/01/16 17:09 08/01/16 05:19 Labs: Short CBC 07/31/16 08/01/16 08/01/16 Range/Units 20:56 05:19 17:09 WBC 11.9 H (4.3-11.1) K/mcL Hgb 9.9 L 9.1 L 9.2 L (12.9-16.9) g/dL Hct 29.5 L 27.6 L 28.0 L (37.5-50.1) % Plt Count 251 (140-400) K/mcL BMP 08/01/16 05:19 Sodium 138 Potassium 4.5 Chloride 103 Carbon Dioxide 31 H BUN 20 Creatinine 0.79 Glucose 112 H Calcium 8.5 L - ABG Interpretation ABG results: PT/INR, D-dimer PT 24.8 Seconds (9.4-12.1) H 07/31/16 11:47 - Attending Attestation I examined this patient and my medical decision-making was reviewed with the [employer] [facility]/PA/Advanced Practice Nurse/Resident Physician. I agree with the documented findings, disposition and treatment plan as described except to the extent set forth below. Follow hb, possible d/c tomorrow if stable.
[2016-08-01] MEDS ORDERED: *HR* Morphine 2 MG/ML SYRINGE IVP PRN (14:54)
[2016-08-01] MEDS: predniSONE 20 MG TABLET PO SCH (15:58)
[2016-08-01 17:21] LABS: Hemoglobin 9.2 g/dL (12.9-16.9)
[2016-08-01] MEDS: *HR* OxyCODONE/APAP 5/325 TABLET PO PRN (18:08)
[2016-08-02 06:17] LABS: Basophils % 0.1 %; Eosinophils % 0.1 %; Hematocrit 28.2 % (37.5-50.1); Hemoglobin 9.1 g/dL (12.9-16.9); Immature Granulocytes % 1.2 % (0-4); Lymphocytes # 1.8 K/mcL (0.6-4.6); Lymphocytes % 13.5 %; Mean Corpuscular HGB Conc 32.3 g/dL (31.6-35.5); Mean Corpuscular Hemoglobin 30.5 pg (28.0-33.3); Mean Corpuscular Volume 94.6 fL (83.0-100.0); Mean Platelet Volume 9.9 fL (9.4-12.4); Monocytes % 7.6 %; Neutrophils # 10.5 K/mcL (1.6-8.9); Nucleated Red Blood Cells 0.1 /100 WBC (0); Platelet Count 295 K/mcL (140-400); Red Blood Count 2.98 M/mcL (4.19-5.50); Segmented Neutrophils % 77.5 %
--- NOTE | 2016-08-02 08:12 | Cardiology Progress Note ---
Date of Encounter: 08/02/16 Time of Encounter: 08:30 Assessment and Plan (1) Atrial fibrillation with RVR Current Visit: Yes Status: Acute Per Cardiology: History of paroxysmal atrial fibrillation on xarelto, atypical atrial flutter s/ p ablation, tachycardia induced cardiomyopathy. Echo shows EF preserved 55%, moderately dilated LA and RA. Tele shows avg HR past 12 hrs 93, currently 80's ( afib). Likely exacerbated by emphysema/bronchitis and pain. On Toprol XL 75mg PO daily. Current systolic blood pressure in the 100's. Discussed with Dr. Armas , will s/o, re-consult PRN. Follow-up as outpatient in one week as scheduled with Dr. Caio Brand. CHA2DS VASc= 2 for HTN and age. Xarelto on hold d/t hematoma. Patient and family aware of increased stroke risk. Resumption of long-term anticoagulation to be evaluated in outpatient setting. (2) Traumatic hematoma of abdominal wall Current Visit: Yes Status: Acute Per Cardiololgy: S/p mechanical fall (slipped on wet steps on a school bus) 07/09/16 with left chest hematoma on CT scan 07/30/16. His Xarelto has now been on hold during this hospital stay. Hgb downward trend, but appears stabilized today. Continue to hold until hematoma resolved and monitor Hgb closely. Recent chest/abdomen/ pelvis CT showed hemorrhage/ecchymosis with subsequent stat left anterolateral and lateral, wall with hematoma of left anterolateral abdominal wall musculature. Qualifiers: Encounter type: initial encounter Qualified Code(s): S30.1XXA - Contusion of abdominal wall, initial encounter Discussion w patient/family: The assessment and plan as outlined above was discussed with the patient and/or family members who expressed understanding and agreement. All questions were answered. Thank you for involving us in the care of your patient. Please call with any questions. Subjective Principal diagnosis: Afib RVR Interval history: Patient denies any palpitations or shortness of breath. Reports some left-sided chest soreness from his fall. Patient and family report worsening bruising to his left flank area since yesterday. He denies any active bleeding or blood loss. Objective Vital Signs, Last 4 Hours Temp Pulse Resp BP Pulse Ox 08/02/16 07:04 97.9 F 84 16 105/74 98 General: Conversant, No Apparent Distress HEENT: Atraumatic, Normocephaly Cardiac: No Murmur, Other (Irregular irregular) Lungs: Normal Breath Sounds, No Wheeze, Rales, Rhonchi, Other (Slightly diminished basis) Neuro: Alert and responsive, No focal deficits noted Abdomen: Soft, Non-Tender, Other (Ecchymosis noted to left abdominal area and left flank) Skin: No rashes noted on visualized skin Musculoskeletal: Other (Slight abdominal tenderness to palpation) Extremities: No Edema, Normal Pulses Results 08/02/16 05:13 08/01/16 05:19 Lab Results Laboratory Tests 08/01/16 08/01/16 08/02/16 05:19 17:09 05:13 Hgb 9.2 L 9.1 L Hct 27.6 L 28.2 L Intake & Output 07/30/16 07/31/16 08/01/16 08/02/16 23:59 23:59 23:59 23:59 Intake Total 1312.6 / 1312.6 1480 / 1480 Output Total 700 / 700 Balance 1312.6 / 1312.6 780 / 780 Weight 138.3 kg 143.29 kg Active Medications Acetaminophen (Tylenol) 650 mg PO Q6HR PRN PRN Reason: Mild Pain (1-3) Stop: 01/30/17 04:40 Albuterol/Ipratropium (Duoneb) 3 ml IH [id number] PRN; Protocol PRN Reason: Shortness Of Breath/Wheezing Stop: 01/30/17 04:43 Benzonatate (Tessalon) 100 mg PO TID [facility] Stop: 01/30/17 09:01 Last Admin: 08/01/16 20:26 Dose: 100 mg Metoprolol Succinate (Toprol Xl) 75 mg PO DAILY [facility] Stop: 02/01/17 09:01 Morphine Sulfate (Morphine Sulfate) 1 mg IVP Q4HR PRN PRN Reason: Severe Pain (7-10) Stop: 01/30/17 04:40 Last Admin: 08/01/16 15:59 Dose: 1 mg Naloxone HCl (Narcan) 0.4 mg IVP Q2MIN PRN PRN Reason: Opioid Reversal Stop: 01/30/17 04:40 Omeprazole (Prilosec) 40 mg PO DAILY@0630 [facility] PRN Reason: Protocol Stop: 01/30/17 06:31 Last Admin: 08/02/16 05:19 Dose: 40 mg Oxycodone/Acetaminophen (Percocet 5/325) 1 each PO Q6HR PRN PRN Reason: Pain Stop: 01/31/17 14:54 Last Admin: 08/01/16 18:08 Dose: 1 each Prednisone (Prednisone) 40 mg PO DAILY AYE Stop: 08/04/16 15:01 Last Admin: 08/01/16 15:58 Dose: 40 mg - EKG Interpretation EKG results cardiology: other (Telemetry reviewed with average heart rate the past hours 93, remains A. fib) - VTE Documentation of Mechanical Device: Intermittent pneumatic compression device Consult Discharge Plan - Plan Instructions: Atrial Fibrillation (DC) Referrals: NO,PCP [Primary Care Provider] -
[2016-08-02] MEDS ORDERED: Metoprolol XL (24 HR) Succ 50 MG TAB.ER.24H PO SCH (09:00)
--- NOTE | 2016-08-02 09:42 | Internal Med Progress Note ---
Date of Encounter: 08/02/16 Time of Encounter: 09:30 - Assessment and plan (1) Atrial fibrillation with RVR Current Visit: Yes Status: Acute Assessment and plan: Rate controlled with Toprol XL 50mg QD CHADSVASC 2, appropriate for long-term a/c, though in setting of pronounced hematoma with low Hgb, continue to hold at this juncture until hematoma resolves. Appreciate cardiology recs. (2) Hematoma of left chest wall Current Visit: Yes Status: Acute Assessment and plan: Per patient, sustained mechanical fall while on Xarelto. White count elevated, with pleural effusion/hematoma acting as possible nidus for infection. 07/31/16 Finished course of levaquin started as outpatient. Pain control with percocet Qualifiers: Encounter type: initial encounter Qualified Code(s): S20.212A - Contusion of left front wall of thorax, initial encounter (3) Traumatic hematoma of abdominal wall Current Visit: Yes Status: Acute Assessment and plan: Per above, monitor H/H. This has extended to region on left back. Order for retroperitoneal US to evaluate any bleed in retroperitoneal space. Qualifiers: Encounter type: initial encounter Qualified Code(s): S30.1XXA - Contusion of abdominal wall, initial encounter (4) Emphysema lung Current Visit: Yes Status: Chronic Assessment and plan: Suggested by CT Chest. He had outpatient prednisone taper, but given continued wheezing on exam and dyspnea, would start 3 day burst prednisone. On Day 2 of prednisone burst, feels improved. Qualifiers: Emphysema type: unspecified Qualified Code(s): J43.9 - Emphysema, unspecified (5) DVT prophylaxis Current Visit: Yes Status: Acute Assessment and plan: EPCDs - Subjective Interval history: Patient seen/eval, at bedside. He states cough is improved. He denies any abdominal, flank pain, or blood-tinged stool/urine. He has noticed enlargening region of left flank hematoma now to his back. - Constitutional Vitals: Temp Pulse Resp BP Pulse Ox 97.9 F 84 16 105/74 98 08/02/16 07:04 08/02/16 07:04 08/02/16 07:04 08/02/16 07:04 08/02/16 07:04 General appearance: Present: A&O X 3, morbidly obese, answers questions appropriately - Head Head exam: Present: atraumatic, normocephalic - Eye Eye exam: Present: EOMI, sclera anicteric - ENT ENT exam: Present: mucous membranes moist - Neck Neck exam general surgery: Present: normal inspection, trachea midline - Respiratory Respiratory exam: Present: rhonchi (scant ronchi). Absent: wheezes Additional comments: diminished 2* habitus - GI/Abdominal GI/Abdominal exam: Present: soft, no peritoneal signs. Absent: guarding, tenderness Additional comments: ecchymotic region from left chest wall to left abdominal region, encompassing left flank. Enlarged to left back. No warmth or fluctuance. - Extremities Exam Extremities exam: Present: warm. Absent: mottling, pedal edema - Neurological Exam Neurological exam: Absent: facial droop, speech deficit Internal Medicine: Result - Labs CBC & Chem 7: 08/02/16 05:13 08/01/16 05:19 Labs: Short CBC 08/01/16 08/02/16 Range/Units 17:09 05:13 WBC 13.5 H (4.3-11.1) K/mcL Hgb 9.2 L 9.1 L (12.9-16.9) g/dL Hct 28.0 L 28.2 L (37.5-50.1) % Plt Count 295 (140-400) K/mcL Neutrophils # 10.5 H (1.6-8.9) K/mcL - ABG Interpretation ABG results: PT/INR, D-dimer PT 24.8 Seconds (9.4-12.1) H 07/31/16 11:47 - VTE Documentation of Mechanical Device: Intermittent pneumatic compression device Consult Discharge Plan - Plan Instructions: Atrial Fibrillation (DC) Referrals: NO,PCP [Primary Care Provider] -
[2016-08-02] MEDS: predniSONE 20 MG TABLET PO SCH (09:50)
[2016-08-02] MEDS: Benzonatate 100 MG CAPSULE PO SCH (09:50)
[2016-08-02] MEDS: *HR* OxyCODONE/APAP 5/325 TABLET PO PRN (13:51)
--- NOTE | 2016-08-02 14:07 | Discharge Summary ---
Addendum entered and electronically signed by Chika Hayes DO 08/02/16 17:37: Note, discontinue his metoprolol 25mg. He will take metoprolol 50mg- (one and 1/2 tablet for 75mg daily) Original Note: <Chika Hayes - Last Filed: 08/02/16 13:53> Date of Encounter: 08/02/16 Time of Encounter: 13:54 - Discharge Diagnosis (1) Atrial fibrillation with RVR Priority: Primary Status: Acute (2) Hematoma of left chest wall Priority: Primary Status: Chronic Qualifiers: Encounter type: initial encounter Qualified Code(s): S20.212A - Contusion of left front wall of thorax, initial encounter (3) Traumatic hematoma of abdominal wall Priority: Primary Status: Chronic Qualifiers: Encounter type: initial encounter Qualified Code(s): S30.1XXA - Contusion of abdominal wall, initial encounter (4) Emphysema lung Priority: Primary Status: Chronic Qualifiers: Emphysema type: unspecified Qualified Code(s): J43.9 - Emphysema, unspecified (5) DVT prophylaxis Priority: Secondary Status: Acute - Discharge Medications Prescriptions: OxyCODONE/APAP 5/325 [Percocet 5/325 MG] 1 tab PO Q6HR PRN #30 tablet PRN Reason: Pain Aspirin 81 mg PO DAILY #20 tab.chew Benzonatate [Tessalon] 100 mg PO TID #12 capsule Metoprolol XL (24 HR) Succ [Toprol Xl] 75 mg PO DAILY #45 tab.er.24h PredniSONE 40 mg PO DAILY #6 tablet Home Medications: Escitalopram [Lexapro] 20 mg PO DAILY 07/15/16 [History] Metoprolol XL (24 HR) Succ [Toprol Xl] 25 mg PO DAILY 07/15/16 [History] Simvastatin [Zocor] 10 mg PO DAILY 07/15/16 [History] Brompheniramine/Pseudoephed/Dm [Bromfed Dm Cough Syrup] 5 ml PO QID #240 ml [Rx] PredniSONE [Deltasone] 20 mg PO DAILY #18 tablet 07/23/16 [Rx] Dutasteride [Avodart] 0.5 mg PO DAILY 07/31/16 [History] Aspirin 81 mg PO DAILY #20 tab.chew 08/02/16 [Rx] Benzonatate [Tessalon] 100 mg PO TID #12 capsule 08/02/16 [Rx] Metoprolol XL (24 HR) Succ [Toprol Xl] 75 mg PO DAILY #45 tab.er.24h 08/02/16 [ Rx] OxyCODONE/APAP 5/325 [Percocet 5/325 MG] 1 tab PO Q6HR PRN #30 tablet 08/02/16 [ Rx] PredniSONE 40 mg PO DAILY #6 tablet 08/02/16 [Rx] Allergies/Adverse Reactions: Allergies Penicillins Allergy (Verified 07/15/16 10:12) Swelling of Lip/Tongue/Throat Procedures/tests Complete & Pending: Procedures Performed prior 72 hours Category Date Time Status CT abd pelvis wo no iv no oral [CT] Urgent Cat Scan 08/02/16 10:57 Draft EV echocardiogram w enhance Routine Y 07/31/16 08:52 Completed Date of admission: 07/31/16 04:41 Primary care physician: PCP NO Consults: 07/31/16 04:43 Consult to Cardiology [CONS] Routine Comment: Consulting Provider: Cardiology [place] Reason for Consult: a fib rvr Call Completed: No 08/01/16 10:32 Consult to Respiratory Therapy [CONS] Routine Reason for Consult: patient has ADOLFO and wears CPAP at home, please arrange for CPAP during stay Call Completed: Yes 08/02/16 13:05 Consult to Pulmonology [CONS] Routine Consulting Provider: [facility] [place] Reason for Consult: Left hemothorax, need for chest tube, discussed with Dr. Encinas Call Completed: Yes Discharging clinician: Santino Mcfarlane Anticipated date of discharge: 08/02/16 - Patient Status Disposition: Home, Self-Care Condition: Fair Functional capacity at discharge: independent ambulation Overall status at discharge: patient is progressing back to baseline - Ambulatory Orders Ambulatory Orders: CT chest wo con [CT] Time Frame: 4 Weeks, Facility: [facility], Location: Radiology Misc. Order2 Time Frame: 8 Days, Facility: [facility], Location: Lab - Discharge Instructions Instructions: Benzonatate (By mouth), Metoprolol (By mouth), Oxycodone/ Acetaminophen (By mouth), Prednisone (By mouth), Atrial Fibrillation (DC), Chronic Obstructive Pulmonary Disease (DC) Follow Up With: Caio Brand MD [Partnered Physician] - (the office with call you with your appointment time if you have any problems call your doctor or go to er) NO,PCP [Primary Care Provider] - Caio Rodriguez MD [Non-Partnered Physician] - (please make f/u appointment in 1 week, hematoma/hemothorax) - Diet and Activity Activity: return to work once cleared by your PCP/specialist Diet: advance to your usual diet Hospital course: Mr. Hastings is a 71 year old male with chronic afib, rate controlled on Toprol XL, anticoagulated with xarelto. He had sustained mechanical fall late Jun 2016 while on xarelto, subsequently developed left ant wall and abdominal/flank ecchymosis. Presents with breakthrough AFRVR to [place] 07/31/15. He had finished 4 day course of Levaquin, and given last dose to finish course. Xarelto held due to hematoma. Cardiology was consulted for AFRVR, suspect exacerbated by recent bout of bronchitis and hematoma. Patient had Toprol XL increased in dose, with improvement of heart rate. Cardiology service agreed with holding xarelto until hematoma resolved. He would be monitored closely on telemetry, with oxygen saturation 97% on room air. Left anterior wall and flank ecchymosis did appear improved over time. Patient would be noted to have ecchymosis from left flank to backside. CTAbd/Pelvis disclosed: 1. New, moderate left hemothorax with associated near complete atelectasis of the left lower lobe. No displaced rib fracture. 2. New left posterior chest/abdominal wall hematoma, measuring up to 2.7 cm. 3. No significant change in left anterolateral abdominal wall hematoma. 4. Hemorrhage/ecchymosis of the left lateral abdominal wall has progressed since the prior examination. Pulmonology service Dr. Encinas consulted for suspected hemothorax with consideration of thoracentesis. Risks, benefits, alternatives were discussed with the patient, and he agreed to proceed with bedside ultrasound-guided thoracentesis. Ultrasound would reveal an organized collection of fluid that is poorly amenable to thoracentesis and drainage. Dr. Encinas counseled the patient. The patient was breathing well on room air, 97% saturation, affirming no dyspnea, pleurisy, flank pain, or difficulty taking full breaths. Dr. Saadlla recommended for the patient to monitor closely , hold xarelto, and to have repeat follow-up imaging in 4 weeks. I discussed the reasoning and alternatives with the patient and as well. They are agreeable to going home with close monitoring. Hgb/Hct in 3 days, with results to PCP Dr. Caio Rodriguez, and f/u in his clinic in 1 week. We discussed his increased risk of stroke and other embolic phenomenon when holding xarelto, but will have 81mg ASA as a therapeutic measure. Xarelto should be held until hematoma resolves. OARRS checked and appropriate to single provider Dr Rodriguez. His abdominal wall tenderness is fairly pronounced and the medication allows ADLs. At time of discharge, patient was clinically improved, hemodynamically stable, agreeable to plan of care. He is advised to seek immediate medical attention for any new or worsening symptoms including but not limited to fever, chills, worsening chest pain, bloody cough, bloody stool, bloody urine, and he voiced understanding. - Time Spent with Patient Total time spent providing and/or coordinating discharge services: Greater than 30 minutes - Constitutional Vitals: Temp Pulse Resp BP Pulse Ox 97.9 F 84 16 105/74 98 08/02/16 07:04 08/02/16 07:04 08/02/16 07:04 08/02/16 07:04 08/02/16 07:04 General appearance: Present: A&O X 3, morbidly obese, answers questions appropriately - Head Head exam: Present: atraumatic, normocephalic - Eye Eye exam: Present: EOMI - ENT ENT exam: Present: mucous membranes moist - Neck Neck exam general surgery: Present: supple, trachea midline - Respiratory Respiratory exam: Present: rhonchi. Absent: wheezes Additional comments: diminished left base. - Cardiovascular Cardiovascular exam: Present: irregular rhythm, +S1, +S2. Absent: JVD - Extremities Exam Extremities exam: Present: warm, radial pulses palpable and symetrical. Absent : pedal edema - VTE Documentation of Mechanical Device: Intermittent pneumatic compression device <Santino Mcfarlane - Last Filed: 08/02/16 17:03> Date of Encounter: 08/02/16 Procedures/tests Complete & Pending: Procedures Performed prior 72 hours Category Date Time Status CT abd pelvis wo no iv no oral [CT] Urgent Cat Scan 08/02/16 10:57 Draft EV echocardiogram w enhance Routine Y 07/31/16 08:52 Completed Date of admission: 07/31/16 04:41 Primary care physician: PCP NO Consults: 07/31/16 04:43 Consult to Cardiology [CONS] Routine Comment: Consulting Provider: Cardiology [place] Reason for Consult: a fib rvr Call Completed: No 08/01/16 10:32 Consult to Respiratory Therapy [CONS] Routine Reason for Consult: patient has ADOLFO and wears CPAP at home, please arrange for CPAP during stay Call Completed: Yes 08/02/16 13:05 Consult to Pulmonology [CONS] Routine Consulting Provider: Pulm [facility] [place] Reason for Consult: Left hemothorax, need for chest tube, discussed with Dr. Encinas Call Completed: Yes Hospital course: Mr. Hastings is a 71 year old male - Time Spent with Patient Total time spent providing and/or coordinating discharge services: - Constitutional Vitals: Temp Pulse Resp BP Pulse Ox 99.5 F 88 16 123/77 96 08/02/16 16:35 08/02/16 16:35 08/02/16 16:35 08/02/16 16:35 08/02/16 16:35 - Attending Attestation I examined this patient and my medical decision-making was reviewed with the [facility] K[facility] MACHINE OPERATOR/PA/Advanced Practice Nurse/Resident Physician. I agree with the documented findings, disposition and treatment plan as described except to the extent set forth below. Hematoma with associated hemothorax in setting of patient on xarelto. Stable. CT noted. D/W foot cutter. Will discharge the patient home today. D/W patient and his family members.
--- NOTE | 2016-08-02 16:24 | Pulmonology Consult Note ---
Date of Encounter: 08/02/16 Time of Encounter: 14:15 Assessment and Plan (1) Hemothorax on left Current Visit: Yes Status: Acute I have done bedside ultrasound was a resident and there is no 1 area for draining and I suspect it is resolving hemothorax. Patient clinically is feeling very good and oxygen saturation is normal on room air. I have explained to him since he has no issues clinically, then an outpatient CT chest in about 1 month can be done for evaluation and if still has hemothorax, then may need chest tube or cardiothoracic consultation. Patient understand and agreed with the plan. Thank you for the consult. (2) Atelectasis, left Current Visit: Yes Status: Acute Hopefully when his pneumothorax resolved and then his atelectasis would improve. For now incentive spirometry is recommended. History of Present Illness Consult date: 08/02/16 Requesting physician: Santino Mcfarlane Reason for consult: other (Hemothorax and atelectasis) Chief complaint: Shortness of breath History of present illness: This is a very pleasant 71-year-old male with history of atrial fibrillation and on anticoagulation who had fell and had shortness of breath. Today he stated he has no shortness of breath and feeling very good. Denies any productive cough, no hemoptysis and denies any wheezing. CT of the abdomen was done and a hemothorax was found with atelectasis. Patient has some chest soreness from the fall, otherwise he is doing really good today. Past Med Surg Social Fam HX - Past Medical History Medical history: atrial fibrillation (With rapid ventricular response on Xarelto ), hypertension, other (Left rib/chest wall hematoma, depression, hyperlipidemia ) Psychiatric history: no psych history - Past Surgical History Surgical History: non-contributory, other (Cardiac ablation) - Social History Smoking Status: Never smoker Smokeless Tobacco Status: No Alcohol use: none Drug use: none - Family History Mother Living Status: Hx Family Cancer: Yes Father Living Status: Hx Family Cardiac Disorders: Yes Medications and Allergies Escitalopram [Lexapro] 20 mg PO DAILY 07/15/16 [History] Metoprolol XL (24 HR) Succ [Toprol Xl] 25 mg PO DAILY 07/15/16 [History] Simvastatin [Zocor] 10 mg PO DAILY 07/15/16 [History] Brompheniramine/Pseudoephed/Dm [Bromfed Dm Cough Syrup] 5 ml PO QID #240 ml [Rx] PredniSONE [Deltasone] 20 mg PO DAILY #18 tablet 07/23/16 [Rx] Dutasteride [Avodart] 0.5 mg PO DAILY 07/31/16 [History] Aspirin 81 mg PO DAILY #20 tab.chew 08/02/16 [Rx] Benzonatate [Tessalon] 100 mg PO TID #12 capsule 08/02/16 [Rx] Metoprolol XL (24 HR) Succ [Toprol Xl] 75 mg PO DAILY #45 tab.er.24h 08/02/16 [ Rx] OxyCODONE/APAP 5/325 [Percocet 5/325 MG] 1 tab PO Q6HR PRN #30 tablet 08/02/16 [ Rx] PredniSONE 40 mg PO DAILY #6 tablet 08/02/16 [Rx] Allergies Penicillins Allergy (Verified 07/15/16 10:12) Swelling of Lip/Tongue/Throat All Systems: A 10-system review of systems was performed and is negative for pertinent findings except as documented above in the HPI. Physical Examination Vital Signs: Temperature 97.9 Heart rate 84 and irregular Respiratory rate 16 Blood pressure 105/74 Oxygen saturation 98% on room air General appearance: no acute distress Eyes: nonicteric ENT: oropharynx moist Mallampati (class): 3 Neck: supple Effort: normal Auscultation: left: diminished breath sounds (Base), right: clear Percussion: left: dull, right: not dull Cardiovascular: irregular rhythm Gastrointestinal: normoactive bowel sounds, soft, other (Ecchymosis left abdominal wall and flank area) Extremities: no cyanosis normal mental status, non-focal exam mood appropriate Results - Laboratory Findings CBC and BMP: 08/02/16 05:13 08/01/16 05:19 PT/INR, D-dimer PT 24.8 Seconds (9.4-12.1) H 07/31/16 11:47 Abnormal lab findings: Abnormal lab results WBC 13.5 K/mcL (4.3-11.1) H 08/02/16 05:13 RBC 2.98 M/mcL (4.19-5.50) L 08/02/16 05:13 Hgb 9.1 g/dL (12.9-16.9) L 08/02/16 05:13 Hct 28.2 % (37.5-50.1) L 08/02/16 05:13 Neutrophils # 10.5 K/mcL (1.6-8.9) H 08/02/16 05:13 Nucleated RBCs/100 WBC 0.1 /100 WBC (0) H 08/02/16 05:13 PT 24.8 Seconds (9.4-12.1) H 07/31/16 11:47 Carbon Dioxide 31 mEq/L (19-29) H 08/01/16 05:19 Glucose 112 mg/dL (70-99) H 08/01/16 05:19 Calcium 8.5 mg/dL (8.6-10.8) L 08/01/16 05:19 HDL Cholesterol 38 mg/dL (40-59) L 08/01/16 05:19 - Diagnostic Findings Additional studies: CT abdomen reviewed - Clinical Findings Intake & Output: Intake & Output 08/02/16 08/02/16 08/02/16 07:59 15:59 23:59 Intake Total 480 / 480 Balance 480 / 480 Weight 143.29 kg Consult Discharge Plan - Plan Instructions: Benzonatate (By mouth), Metoprolol (By mouth), Oxycodone/ Acetaminophen (By mouth), Prednisone (By mouth), Atrial Fibrillation (DC), Chronic Obstructive Pulmonary Disease (DC) Referrals: Caio Rodriguez MD [Non-Partnered Physician] - (please make f/u appointment in 1 week, hematoma/hemothorax) Caio Brand MD [Partnered Physician] - (the office with call you with your appointment time if you have any problems call your doctor or go to er) NO,PCP [Primary Care Provider] - Prescriptions: OxyCODONE/APAP 5/325 [Percocet 5/325 MG] 1 tab PO Q6HR PRN #30 tablet PRN Reason: Pain Aspirin 81 mg PO DAILY #20 tab.chew Benzonatate [Tessalon] 100 mg PO TID #12 capsule Metoprolol XL (24 HR) Succ [Toprol Xl] 75 mg PO DAILY #45 tab.er.24h PredniSONE 40 mg PO DAILY #6 tablet
[2016-08-02 16:48] VITALS: BP 123/77
== END 2016-08-02 17:30 | disposition home or self-care (01) | DRG 309 ==
LOC: 2NENU 02:10 → EMEROO 02:10 → SUATTDRO 04:41 → OBSVTOIN 04:41 → 2NENU 08:01
PROVIDERS: ADMIT Internal Medicine; ATTEND Internal Medicine